=== PATIENT | female | born 1965 | race Caucasian/White ===

== ENCOUNTER 2020-05-03 10:35 | Outpatient (CLI) | payer MEDICARE, MEDICAID, SELFPAY | END 2020-05-03 10:36 | disposition home or self-care (01) | DX: H91.93 Unspecified hearing loss, bilateral (principal) | CPT/HCPCS: 92557; 92567 ==

== ENCOUNTER 2023-06-04 08:11 | Outpatient (CLI) | payer MEDICARE, MEDICAID, SELFPAY | END 2023-06-04 08:12 | disposition home or self-care (01) | LOC: ANHBWCAUD 08:14 | PROVIDERS: Visit Provider Family Medicine | DX: H90.41 Sensorineural hearing loss, unilateral, right ear, with unrestricted hearing on the contralateral side (principal) | CPT/HCPCS: 92557; 92567 ==